=== PATIENT | male | born 1970 | race African-American/Black ===

== ENCOUNTER 2017-06-06 12:22 | Emergency (ER) | payer BC ==
[2017-06-06 12:32] VITALS: BP 140/91; PULSE 82; TEMP 98.7; BMI 30.7
--- NOTE | 2017-06-06 12:57 | PDOC ---
History of Present Illness - General Chief Complaint: Choking Sensation Stated Complaint: POSSIBLE BONE IN THROAT Time Seen by Provider: 06/06/17 12:42 History Source: Patient Exam Limitations: No Limitations - History of Present Illness Initial Comments: 06/06/17 12:57 Patient states was eating fish this morning and felt a fishbone lodge in the back part of his left side of throat. Patient denies airway difficulty breathing problems but states feels the foreign body deep in the back of his left pharynx. Is able to drink but is uncomfortable Occurred: reports: this morning Severity: reports: mild Associated Symptoms (Fall): denies symptoms Past History - Travel Traveled outside of the country in the last 30 days: No Close contact w/someone who was outside of country & ill: No - Past Medical History Allergies/Adverse Reactions: Allergies Allergy/AdvReac Type Severity Reaction Status Date / Time No Known Allergies Allergy Verified 06/06/17 12:32 COPD: No Thyroid Disease: No - Suicide/Smoking/Psychosocial Hx Smoking History: Never smoked Have you smoked in the past 12 months: No Information on smoking cessation initiated: No Hx Alcohol Use: No Drug/Substance Use Hx: No Substance Use Type: None Review of Systems - Review of Systems Able to Perform ROS?: Yes Is the patient limited [place] proficient: Yes Constitutional: Yes: Symptoms Reported, See HPI, Malaise. No: Fever, Loss of Appetite HEENTM: Yes: Symptoms Reported, See HPI, Difficulty Swallowing. No: Throat Swelling (denies feelings of swelling but feels foreign body lodged in the left posterior pharynx) Respiratory: Yes: See HPI. No: Symptoms reported, Cough, Shortness of Breath, Wheezing All Other Systems: Reviewed and Negative *Physical Exam - Vital Signs Last Vital Signs Temp Pulse Resp BP Pulse Ox 98.7 F 82 18 140/91 100 06/06/17 12:27 06/06/17 12:27 06/06/17 12:27 06/06/17 12:27 06/06/17 12:27 - Physical Exam General Appearance: Yes: Nourished, Appropriately Dressed, Apparent Distress, Mild Distress HEENT: positive: [place], Normal ENT Inspection, TMs Normal, Pharynx Normal (no bleeding, swelling, airway difficulty, excoriation or scratches noted. No foreign bodies noted in posterior pharynx and airway is patent) Neck: positive: Tender, Trachea midline, Supple. negative: Lymphadenopathy (R) Respiratory/Chest: positive: Lungs Clear, Normal Breath Sounds Cardiovascular: positive: Regular Rhythm ED Treatment Course - RADIOLOGY Radiology Studies Ordered: Category Date Time Status NECK SOFT TISSUE [RAD] Stat Radiology 06/06/17 12:42 Ordered Progress Note - Progress Note Progress Note: Allegedly foreign body to throat. Offered CAT scan soft tissue neck and patient refused. States feels more comfortable with seeking evaluation from ear nose and throat doctor for an endoscopy. His physician is in the city who he will follow up with for ENT referral. Patient stands need to return immediately to emergency department for swelling, difficulty swallowing, breathing problems or fevers. *DC/Admit/Observation/Transfer Diagnosis at time of Disposition: Foreign body in throat Qualifiers: Encounter type: initial encounter Qualified Code(s): T17.208A - Unspecified foreign body in pharynx causing other injury, initial encounter - Discharge Dispostion Disposition: HOME Condition at time of disposition: Stable Admit: No - Referrals Referrals: Luis Terrazas MD [Staff Physician] - - Patient Instructions Printed Discharge Instructions: DI for Foreign Body, Swallowed-Adult Additional Instructions: Rest, drink lots of fluids: Teas, water, soups Eat cold things: Ice cream, ice pops, ice chips Soft foods: yogert, Icecream, soups, etc Saltwater gargles, may use anesthetic sprays for discomfort Avoid contact with others until fevers and pain resolved Lots of handwashing and good hygiene, this is contagious Tylenol or Motrin for fever and pain Followup with private physician in one to 2 days as needed if not improving Return to emergency department for worsened symptoms, fevers, dehydration - Post Discharge Activity Forms/Work/School Notes: Back to Work
== END 2017-06-06 13:38 | disposition home or self-care (01) ==
LOC: JER 12:22
DX: T17.208A Unspecified foreign body in pharynx causing other injury, initial encounter (principal); X58.XXXA Exposure to other specified factors, initial encounter; Y93.89 Activity, other specified; Y92.89 Other specified places as the place of occurrence of the external cause
CPT/HCPCS: 70360-TC; 99281-25